=== PATIENT | male | born 1950 | race Caucasian/White ===

== ENCOUNTER → 2020-01-23 | Outpatient (CLI) | payer OTHER ==
[~2020-01-23] MED LIST: ACETAMINOPHEN650 M5 PO; ALLOPURINOL 10100 M3 PO; ASA81BEC PO; ASPIRIN325 PO; BUPROPION XL150 MG; CARVEDILOL12.5 MG PO; CLONAZEPAM; CLONAZEPAM PO; DESYREL50 MG; DIABETA 1.25M1.25 M1; FLOMAX0.4 MG PO; GLIMEPIRIDE4 MG PO; GLUCOPHAGE500 MG; IBUPROFEN 800800 M1 PO; IMIPRAMINE HCL50 M2; IMIPRAMINE HCL50 M2 PO; LANOXIN125 MCG PO; LIPITOR10 MG; LIPITOR10 MG PO; LORCET 5-325 M1 EACH PO; LUNESTA3 MG; METFORMIN; MIRTAZAPINE15 M2 PO; MUPIROCIN INTRADERM; NEURONTIN100 MG PO; NORCO 5-325 TA1 EACH PO; OMEPRAZOLE 20 M20 M1 PO; OMEPRAZOLE20 M2; PENLAC INTRADERM; PROSCAR 5MG TABL5 M1 PO; PYRIDOSTIGMINE60 M1 PO; TAMSULOSIN HCL0.4 M1; TESTONE CI200 MG/1 M IM; TOFRANIL; TRAZODONE HCL50 MG PO; TRESIBA100 UNIT/1; VITAMIN D250 MC1 PO; WELLBUTRIN SR150 MG PO
--- NOTE | ~2020-01-23 | PAINCON ---
[address] [address] PAIN MANAGEMENT CONSULTATION Name: JOSTIN BHAGAT Room: [facility].#: [id number] Admission: 01/23/20 Attend Phys: Genaro Rodriguez MD Discharge: Date of : 52 Report #: [id number] THIS REPORT FOR: //name// cc: Vasquez Saunders MD, Anthony MD ~ THIS REPORT FOR: //name// CC: Vasquez Rodriguez DATE OF SERVICE: 01/23/2020 CHIEF COMPLAINT: Left groin, low back and middle back pain. HISTORY: The patient is a 69-year-old gentleman who has been referred to the pain clinic. He has been experiencing pain, which has been more problematic over the last 4 months. He notes that pain is increased when he is standing. Activities of daily living can increase his discomfort. Has pain that radiates down the back area and around into the anterior portion of his thigh. Sometimes he notes pain in the left groin area. He rates it as a 1-2 on occasion. Oftentimes his pain continues to be more problematic as he becomes more active. He feels that this pain and discomfort is disturbing his sleep. He has been using gabapentin and hydrocodone that has provided about 80% improvement in his pain. He has not had back surgery. Denies any new bowel or bladder dysfunction. He has been told that he had some spinal stenosis. He has used prednisone in the past. he was given a Medrol Dosepak. He does like to ride his [employer]. ALLERGIES: PENICILLIN. CURRENT MEDICATIONS: Gabapentin 100 mg 1-2 tablets at bedtime, imipramine 50 mg, mupirocin 2% external ointment to affected area b.i.d., Penlac 8% external solution to nails daily, allopurinol 100 mg, insulin pen injector 50 units daily, tamsulosin 0.4 mg 1-2 tablets daily, hydrocodone 5/325 one p.o. q. 6 hours p.r.n. pain, pyridostigmine 60 mg q.i.d. p.r.n., aspirin 81 mg, digoxin, Coreg 12.5 mg b.i.d., finasteride 5 mg, glimepiride 4 mg b.i.d., mirtazapine 5 mg one-half to one tablet at bedtime, Wellbutrin 150 mg, testosterone intramuscular vitamin D 50,000 units weekly, omeprazole 20 mg, trazodone 50 mg 3 tablets at bedtime. 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 PAST SURGICAL HISTORY: Cholecystectomy in 1990, skin cancer, pacemaker/defibrillator placement in 2015. SOCIAL HISTORY: The patient retired in 2001. REVIEW OF SYSTEMS: Questionnaire, generally good health, wears glasses, heart trouble, shortness of breath with walking, swelling of the feet, shortness of breath with activity, weakness of muscles and joints. LABORATORY DATA: Exam of lumbar spine, 3 views 11/27/2019, multilevel facet joint degenerative changes particularly at L4 through S1. No evidence of acute fracture or bone destruction. Probable small right lower pole renal calculi again noted. Surgical clips from prior cholecystectomy. IMPRESSION: 1. Multilevel facet arthropathy. 2. Degenerative disk disease at L5 through S1. CT of the lumbar spine dated 12/04/2019. Finding the lowest fully formed disk is referred to as L5-S1. Limited evaluation of the intervertebral disk, spinal canal contents and soft tissues on this noncontrast CT image alignment height, maintain a slight anterolisthesis of L4 and L5 disk spaces. Disk space is narrowing at L5-S1 with vacuum disk phenomenon, endplate sclerosis and marginal osteophytes. Degenerative changes at other disk levels to a lesser degree. Broad-based disk bulge at L2-L3, L3-L4, and L4-L5. Probable left paracentral disk protrusion at L4-L5 as well. Central to right paracentral disk protrusion at L5-S1 without or with marginal osteophytes. Neural foramen, mild bilateral neural foraminal narrowing, left greater than right narrowing at L3-L4 due to asymmetric disk bulge or lateral disk protrusion. 3. Multilevel lumbar disk images with bulges. Left paracentral disk protrusion at L4-L5. Disk osteophyte complex at L5-S1. Facet arthropathy, most prominent at L4-L5. Consider a CT myelogram for further evaluation. 4. Degenerative joint disease of lumbar spine. 5. History of lumbar radiculopathy left. 6. Type 2 diabetes with diabetic polyneuropathy. 7. Benign prostatic hypertrophy with obstruction. 8. Hypogonadism. 9. Hypotension. 10. B12 deficiency. 11. Permanent pacemaker in place. 12. Congestive heart failure. 13. Proteinuria. 14. Kidney disease chronic stage 3. 15. Type 2 diabetes [place] [address] PAIN MANAGEMENT CONSULTATION Name: JOSTIN BHAGAT Room: [facility].#: [id number] Admission: 01/23/20 Attend Phys: Genaro Rodriguez MD Discharge: Date of : 52 Report #: [id number] 16. Cardiomyopathy dilated, ejection fraction 20% in 2015. 17. Thyroid nodule. 18. Myasthenia gravis. 19. Actinic keratosis. 20. Hypertension. 21. Hypercholesterolemia. 22. Insomnia. 23. Chronic overactive bladder. PAIN CLINIC ASSESSMENT AND PQRS: 1. The patient has some osteoarthritic changes in his back. The patient is not being treated for rheumatoid arthritis. 2. Height 6 feet 1 inch, weight 217 pounds, BMI 28.9. 3. Vital Signs: Blood pressure 95/57, heart rate 82, respiratory rate 16, room air saturation 96%, temperature 97.5. 4. Pain intensity is 1-2/10. 5. Fall history: The patient has not fallen in the last 3 months. 6. Blood thinner. The patient is not on a blood thinning medication. 7. Opioid use, greater than 6 weeks. The patient receives medications from his primary physician. 8. Opioid use low. 9. Risk assessment tool, low for opioids. 10. Functional assessment tool reviewed. 11. Recreational drug use. The patient denies. 13. Tobacco: The patient does not smoke. 13. Alcohol. The patient denies tobacco and again the patient denies significant use of alcohol. PHYSICAL EXAMINATION: GENERAL: The patient appears a well-developed, well-nourished white male. Appears his stated age. He is alert and oriented x 3. His affect is appropriate. Speech is fluent. HEENT: Normocephalic, atraumatic. Extraocular eye muscles intact. Sclerae nonicteric. Mucous membranes are moist. NECK: Without adenopathy or JVD. HEART: The patient's rate is normal rhythm. ABDOMEN: Nontender. MUSCULOSKELETAL: Upper extremity muscle strength judged to be 5-/5 for the major muscle groups in the upper extremity. The patient has pain and discomfort in the lower portion of his back. His pain is radiating down in the left L5-S1 dermatomal distribution in the back as well as some pain and discomfort in the L2-L3 area in the anterior portion of his thigh. RECOMMENDATIONS: We discussed treatment options with the patient. Risks and benefits of an epidural steroid injection have been discussed. Possibility of improvement from the epidural steroid injections were [place] [address] PAIN MANAGEMENT CONSULTATION Name: JOSTIN BHAGAT Room: [facility]#: [id number] Admission: 01/23/20 Attend Phys: Genaro Rodriguez MD Discharge: Date of : 52 Report #: [id number] has also been informed of the possible complications. Given that this is a time were COVID-19 is problematic. We have explained to the patient that the steroid medications can decrease the patient's ability to fight off COVID-19 get and have an infection. A script for his medications of hydrocodone 5/325 one p.o. 3 times a day have been provided. The patient will return to the Pain Clinic. The possibility of an epidural steroid injection is an option. We would like to thank you for letting us participate in his care. We hope he continues to improve. We would recommend that the patient continue to be mindful of the COVID-19, which is increasing in our area. By: [id number]. Armando Rodriguez MD /RUPERT
== END ==
LOC: M.PC 12:31
DX: M12.88 Other specific arthropathies, not elsewhere classified, other specified site (principal); M51.17 Intervertebral disc disorders with radiculopathy, lumbosacral region; E11.42 Type 2 diabetes mellitus with diabetic polyneuropathy; N40.0 Benign prostatic hyperplasia without lower urinary tract symptoms; E29.1 Testicular hypofunction; E53.8 Deficiency of other specified B group vitamins; Z95.0 Presence of cardiac pacemaker; I50.9 Heart failure, unspecified; N18.3 Chronic kidney disease, stage 3 (moderate); E11.22 Type 2 diabetes mellitus with diabetic chronic kidney disease; E04.1 Nontoxic single thyroid nodule; I13.0 Hypertensive heart and chronic kidney disease with heart failure and stage 1 through stage 4 chronic kidney disease, or unspecified chronic kidney disease; E78.00 Pure hypercholesterolemia, unspecified; Z79.891 Long term (current) use of opiate analgesic; Z79.899 Other long term (current) drug therapy

== ENCOUNTER → 2020-01-25 | Outpatient (CLI) | payer OTHER | END | disposition home or self-care (01) | LOC: M.PC 01:52 | DX: M54.16 Radiculopathy, lumbar region (principal); G89.29 Other chronic pain; Z79.899 Other long term (current) drug therapy; Z88.0 Allergy status to penicillin ==

== ENCOUNTER → 2020-04-18 | Outpatient (CLI) | payer OTHER ==
--- NOTE | 2020-04-18 22:53 | PAINCON ---
[address] [address] PAIN MANAGEMENT CONSULTATION Name: JOSTIN BHAGAT Room: [facility]#: [id number] Admission: 04/18/20 Attend Phys: Genaro Rodriguez MD Discharge: Date of : 52 Report #: [id number] THIS REPORT FOR: //name// cc: Vasquez Saunders MD, Anthony MD ~ THIS REPORT FOR: //name// CC: Vasquez Rodriguez DATE OF SERVICE: 04/18/2020 CHIEF COMPLAINT: Low back and hip pain. HISTORY: The patient is a 69-year-old gentleman who has been followed in the pain clinic because of chronic pain. He has noticed that this pain has increased over the last 4 months. Pain is worse when he is standing. He does have increased pain and discomfort with standing. When he goes shopping, he rides in one of the motorized cart. After standing for a few minutes, he notices increased pain in his low back. This pain can radiate down into the lateral portion of his left leg. He notes that the pain improves after sitting down for about 5 minutes. Walking increases the pain and discomfort and limits his ability to engage in walking activities. He feels that the last injection was helpful. He rates his pain as a 1 today. While sitting in certain positions and standing the pain can escalate to a higher level that causes him to switch positions. He is also having pain in his left hip. He states that the pain is in his left hip pocket. Certain movements worsen the pain. While sitting in the exam room he does complain of some pain and discomfort in the left hip and repositions his hip and the pain improves. He has not had surgery on his hip. He has not had back surgery. He has been told that he has spinal stenosis. Pain is worse, the pain prevents him from riding his [employer] motorcycle. ALLERGIES: PENICILLIN. CURRENT MEDICATIONS: Gabapentin 100 mg 1-2 tablets at bedtime, imipramine 50 mg, mupirocin 2% ointment b.i.d., Penlac 8% external solution for nails, allopurinol 100 mg, insulin injector 50 units, Flomax 0.4 mg 1-2 tablets, hydrocodone 5/325 one p.o. q. 6 hours p.r.n. pain, pyridostigmine 60 mg q.i.d., aspirin 81 mg, Digoxin, Coreg 12.5 mg b.i.d., finasteride 5 mg, glimepiride 5 mg b.i.d., mirtazapine 5 mg 1-1/2 tablets at bedtime, Wellbutrin 150 mg, testosterone, vitamin D 50,000 units weekly, omeprazole 20 mg, trazodone 50 mg 3 tablets at bedtime. PAIN CLINIC ASSESSMENT AND PQRS: 1. The patient does have some osteoarthritic changes in his back. [place] [address] PAIN MANAGEMENT CONSULTATION Name: JOSTIN BHAGAT Room: [facility] Maryam#: [id number] Admission: 04/18/20 Attend Phys: Genaro Rodriguez MD Discharge: Date of : 52 Report #: [id number] being treated for rheumatoid arthritis. 2. Height 6 feet 1 inch, weight 221 pounds, BMI is 29. 3. Vital Signs: Blood pressure 130/62, heart rate 75, respiratory rate 16, room air saturation 96%, temperature 97.7. 4. Pain intensity 1 while sitting today. 5. Fall history: The patient has not fallen in the last 3 months. 6. Blood thinner. The patient is not on a blood thinning medication. 7. Hypertension. The patient is being treated for hypertension. 8. Opioids, low for opioid use. 9. Risk assessment tool, low for opioids. 10. Recreational drug use. The patient denies. 11. Functional assessment reviewed. 12. Tobacco: The patient denies. 13. Alcohol. The patient denies significant alcohol use. PHYSICAL EXAMINATION: GENERAL: The patient is a well-developed, well-nourished white male. Appears his stated age. He is alert and oriented x 3. His affect is appropriate. Speech is fluent. HEENT: Normocephalic, atraumatic. Extraocular eye muscles intact. Sclerae nonicteric. Mucous membranes are moist. The patient is wearing glasses. He has a mask in place. NECK: Without adenopathy. HEART: Regular. ABDOMEN: Nontender. LUNGS: Generally clear. MUSCULOSKELETAL: Upper extremity muscle strength 5/5 for the major muscle groups in the upper extremity. The patient has pain and discomfort in the left hip. While sitting, he notes some pain and discomfort in the hip area with pain radiating into the groin area. Movement of his leg decreases some of this pain and discomfort. The patient also has pain that radiates down into the L4-L5 dermatomal distribution involving his leg. IMPRESSION: 1. Lumbar radiculopathy involving the L4-L5 dermatomal distribution. 2. History of spinal stenosis. 3. Left paracentral disk bulge protrusion at L4-L5. 4. Type 2 diabetes with diabetic polyneuropathy. 5. Benign prostatic hypertrophy with obstruction. 6. Hypogonadism. 7. Hypertension. 8. B12 deficiency. 9. Permanent pacemaker in place. 10. Congestive heart failure. 11. Proteinuria. 12. Kidney disease, chronic stage 3. [address] [place] [address] PAIN MANAGEMENT CONSULTATION Name: JOSTIN BHAGAT Room: [facility]#: [id number] Admission: 04/18/20 Attend Phys: Genaro Rodriguez MD Discharge: Date of : 52 Report #: [id number] 13. Type 2 diabetes with diabetic neuropathy. 14. Cardiomyopathy dilated, ejection fraction 20% in 2016. 15. Thyroid nodule. 16. Myasthenia gravis. 17. Actinic keratosis. 18. Hypertension. 19. Hypercholesterolemia. 20. Insomnia. 21. Chronic overactive bladder. RECOMMENDATIONS: We discussed treatment options with the patient. At this juncture, we will have his left hip evaluated with an x-ray. He does complain of pain and discomfort in the groin area. The pain that he has is sometime seen with hip pathology. We will have the patient return to the pain clinic, at which time we will consider an epidural steroid injection to help with the pain in the L4-L5 dermatomal distribution. We will also have the patient call us if he is having any problems. A script for hydrocodone 5 mg 1 p.o. t.i.d. have been provided. We would like to thank you for letting us participate in his care. We hope he continues to improve. <ELECTRONICALLY SIGNED> By: Genaro Rodriguez MD 04/18/20 [id number]. Armando Rodriguez MD /RUPERT
== END ==
LOC: M.RAD 03:57 → M.PC 03:57
PROVIDERS: ATTEND Anesthesiology Pain Medicine
DX: M54.16 Radiculopathy, lumbar region (principal); M51.26 Other intervertebral disc displacement, lumbar region; N40.0 Benign prostatic hyperplasia without lower urinary tract symptoms; I10 Essential (primary) hypertension; E29.1 Testicular hypofunction; E11.42 Type 2 diabetes mellitus with diabetic polyneuropathy; D51.9 Vitamin B12 deficiency anemia, unspecified; I50.20 Unspecified systolic (congestive) heart failure; R80.9 Proteinuria, unspecified; N18.3 Chronic kidney disease, stage 3 (moderate); Z86.69 Personal history of other diseases of the nervous system and sense organs; Z95.0 Presence of cardiac pacemaker; Z88.0 Allergy status to penicillin; Z79.899 Other long term (current) drug therapy

== ENCOUNTER → 2020-05-02 | Outpatient (CLI) | payer OTHER ==
--- NOTE | 2020-05-21 21:31 | PAINCON ---
[facility] [address] [place] [address] PAIN MANAGEMENT CONSULTATION Name: JOSTIN BHAGAT Room: [facility]#: [id number] Admission: 05/02/20 Attend Phys: Genaro Rodriguez MD Discharge: Date of : 52 Report #: [id number] THIS REPORT FOR: //name// cc: Vasquez Saunders MD, Anthony MD ~ THIS REPORT FOR: //name// CC: Vasquez Rodriguez DATE OF SERVICE: 05/02/2020 CHIEF COMPLAINT: Low back pain. HISTORY: The patient is a 69-year-old gentleman who has been seen in the pain clinic because of lumbar radiculopathy. He has pain, which has been problematic over the last 4 months. Pain is worse when he is standing. Notes increased discomfort with activities of daily living. He often drives a motorized cart when he goes to the store. He notes that there is pain that radiates down into his lateral leg. Notes improvement after sitting for about 5 minutes. Walking increases the pain. Notes that the pain is about 1 when sitting. It escalates with activity. He has had symptoms of spinal stenosis. He has not had back surgery. ALLERGIES: PENICILLIN. CURRENT MEDICATIONS: Gabapentin 100 mg 1-2 tablets at bedtime, imipramine 50 mg, mupirocin 2% ointment b.i.d., Penlac 8% external solution for nails, allopurinol 100 mg, insulin injector 50 units, Flonase 0.4 mg 1-2 tablets, hydrocodone 5/325 one p.o. q. 4 hours p.r.n., Pyridostigmine 60 mg q.i.d., aspirin 81 mg, doxepin, Coreg 12.5 mg, finasteride 5 mg, glimepiride 5 mg b.i.d., mirtazapine 5 mg 1-1/2 tablets at bedtime, Wellbutrin 150 mg, testosterone, vitamin D 50,000 units weekly, omeprazole 20 mg, trazodone 50 mg at bedtime. PAIN CLINIC ASSESSMENT AND PQRS: 1. The patient is not being treated for rheumatoid arthritis. He does have some arthritic changes in his back. 2. Height 6 feet 1 inch, weight 219 pounds, BMI is 28. 3. Vital Signs: Blood pressure 93/55, heart rate 78, respiratory rate 16, room air saturation is 96%, temperature 97.5. 4. Pain intensity 3/10. 5. Fall history: The patient has not fallen since we saw him last. 6. Blood thinner. The patient is not on a blood thinning medication. 7. Hypertension. The patient is being treated for hypertension. 8. Opioids, [place] [address] PAIN MANAGEMENT CONSULTATION Name: COLLIN BHAGATAbbey Hernandez Room: [facility]#: [id number] Admission: 05/02/20 Attend Phys: Genaro Rodriguez MD Discharge: Date of : 52 Report #: [id number] 9. Functional assessment tool, low for use of opioid. 10. Recreational drug use. The patient denies. 11. Functional assessment tool, reviewed. 12. Tobacco: The patient denies use of tobacco. 13. Alcohol. The patient denies significant alcohol abuse. PHYSICAL EXAMINATION: GENERAL: The patient is a well-developed, well-nourished white male. Appears his stated age. He is alert and oriented x 3. His affect is appropriate. Speech is fluent. HEENT: Normocephalic, atraumatic. Extraocular eye muscles intact. Sclerae nonicteric. Mucous membranes are moist. The patient is wearing glasses. He has a mask in place. NECK: Without adenopathy. HEART: Regular rate. ABDOMEN: Nontender. LUNGS: Generally clear. MUSCULOSKELETAL: Upper extremity muscle strength judged to be 5-/5 for the major muscle groups in the upper extremity. The patient has some pain and discomfort in his left hip. Notes that there is pain and discomfort in the hip, which radiates into his groin. The patient has leg discomfort and discomfort radiating down into the L4-L5 dermatomal distribution. IMPRESSION: 1. Lumbar radiculopathy involving the L4-L5 dermatomal distribution. 2. History of spinal stenosis. 3. Left paracentral disk bulge protrusion at L4-L5. 4. Type 2 diabetes with diabetic polyneuropathy. 5. Benign prostatic hypertrophy with obstruction. 6. Hypogonadism 7. Hypertension. 8. B12 deficiency. 9. Permanent pacemaker in place. 10. Congestive heart failure. 11. Proteinuria. 12. Kidney disease, chronic stage 3. 13. Type 2 diabetes with diabetic neuropathy. 14. Dilated cardiomyopathy with an ejection fraction 20% in 2016. 15. Thyroid disease. 16. Myasthenia gravis. 17. Actinic keratoses. 18. Hypertension. 19. Hypercholesterolemia. 20. Insomnia. 21. Overactive bladder. [address] [address] PAIN MANAGEMENT CONSULTATION Name: [facility]OSTIN BHAGAT [id number] Admission: 05/02/20 Attend Phys: Genaro Rodriguez MD Discharge: Date of : 52 Report #: [id number] RECOMMENDATIONS: We discussed treatment options with the patient. Risks and benefits of an epidural steroid injection were discussed. Possible complications of the procedure, which could include but are not limited to infection, worsening pain, no improvement in pain, nerve damage were reviewed. The COVID-19 pandemic is present. We discussed with the patient the possibility of infection with COVID virus. Given that steroids can decrease one's immune response. The patient may have a more difficult time with the virus. The patient elects to proceed. PROCEDURE NOTE: The patient was taken to the procedure area. He was then assisted in getting on examination table. His back was sterilely prepped. A 0.25% bupivacaine was infiltrated at the L4-L5 interspace. A 17-gauge Tuohy with loss of resistance technique was used to gain access to the epidural space. There was no CSF, heme or paresthesia. Total of 80 mg Depo-Medrol, 40 mg triamcinolone and 2 mL of 0.25% bupivacaine was injected. The patient tolerated the procedure well. He remained in the pain clinic for an appropriate amount of time. We would like to thank you for letting us participate in his care. We hope he continues to improve. <ELECTRONICALLY SIGNED> By: Genaro Rodriguez MD 05/21/20 [id number]. Armando Rodriguez MD /PMT
== END | disposition home or self-care (01) ==
LOC: M.PC 01:48
PROVIDERS: ATTEND Anesthesiology Pain Medicine
DX: M54.16 Radiculopathy, lumbar region (principal); G89.29 Other chronic pain; I13.0 Hypertensive heart and chronic kidney disease with heart failure and stage 1 through stage 4 chronic kidney disease, or unspecified chronic kidney disease; E11.22 Type 2 diabetes mellitus with diabetic chronic kidney disease; N18.3 Chronic kidney disease, stage 3 (moderate); I50.9 Heart failure, unspecified; N40.0 Benign prostatic hyperplasia without lower urinary tract symptoms; E11.40 Type 2 diabetes mellitus with diabetic neuropathy, unspecified; E07.9 Disorder of thyroid, unspecified; E78.00 Pure hypercholesterolemia, unspecified; G47.00 Insomnia, unspecified; Z98.890 Other specified postprocedural states; Z79.899 Other long term (current) drug therapy; Z79.4 Long term (current) use of insulin; Z95.0 Presence of cardiac pacemaker; Z88.0 Allergy status to penicillin

== ENCOUNTER → 2020-06-20 | Outpatient (CLI) | payer OTHER ==
--- NOTE | 2020-07-02 14:22 | PAINCON ---
[address] [address] PAIN MANAGEMENT CONSULTATION Name: JOSTIN BHAGAT Room: [facility]#: [id number] Admission: 06/20/20 Attend Phys: Genaro Rodriguez MD Discharge: Date of : 52 Report #: [id number] THIS REPORT FOR: //name// cc: Vasquez Saunders MD, Anthony MD ~ THIS REPORT FOR: //name// CC: Vasquez Rodriguez DATE OF SERVICE: 06/20/2020 CHIEF COMPLAINT: Low back and leg pain. HISTORY: The patient is a 70-year-old gentleman who has been seen in the Pain Clinic in the past because of lumbar radiculopathy. He has been experiencing pain and discomfort, which is radiating down the lower portion of his back and into the lateral portion of his leg. He has returned today with the desire to undergo an epidural steroid injection. He rates his pain as 7/10 today. Pain radiates down into the low back and involving the left leg and left groin area as well. He is limited in his ability to walk for distance. After about 5 minutes, he must sit and rest. He has been experiencing clinical symptoms of spinal stenosis. He has not had back surgery. ALLERGIES: PENICILLIN. CURRENT MEDICATIONS: Gabapentin 100 mg 1-2 tablets at bedtime, imipramine 50 mg, mupirocin 2% ophthalmic b.i.d., Penlac 8% external solution for nails, allopurinol 100 mg, insulin injector 50 units as directed, Flonase 0.4 mg 1-2 tablets, hydrocodone 5/325 one p.o. every 4-6 hours p.r.n., pyridostigmine 60 mg q.i.d., aspirin 81 mg, Coreg 12.5 mg, finasteride 5 mg, glimepiride 5 mg b.i.d., mirtazapine 5 mg 1-1/2 tablets at bedtime, Wellbutrin 150 mg, testosterone, vitamin D 50,000 units weekly, omeprazole 20 mg, and trazodone 50 mg at bedtime. PAIN CLINIC ASSESSMENT AND PQRS: 1. The patient is not being treated for rheumatoid arthritis. He does have some arthritic changes in his back. 2. Height 6 feet 1 inch, weight 223 pounds, BMI is 29. 3. Vital signs: Blood pressure is 154/55. 4. ____, respiratory rate 16, and room air saturation 94%. 5. Pain intensity 7/10. 6. Fall history: The patient has not fallen in the last 3 months. 7. Blood thinner. The patient is not on a blood thinning medication. 8. Hypertension. The patient is being treated for hypertension. 9. Opioids, [place] [address] PAIN MANAGEMENT CONSULTATION Name: JOSTIN BHAGAT David Room: [facility]#: [id number] Admission: 06/20/20 Attend Phys: Genaro Rodriguez MD Discharge: Date of : 52 Report #: [id number] 10. Functional assessment tool reviewed. 11. Recreational drug use. The patient denies. 12. Tobacco: The patient denies use of tobacco. 13. Alcohol. The patient denies significant use of alcohol. PHYSICAL EXAMINATION: GENERAL: The patient is a well-developed, well-nourished white male. Appears his stated age. He is alert and oriented x 3. He is accompanied by his . He has a facial covering in place. Mucous membranes moist. The patient is wearing glasses. NECK: Without adenopathy. HEART: Regular rate. ABDOMEN: Nontender. LUNGS: Generally clear. MUSCULOSKELETAL: Upper extremity muscle strength judged to be 5-/5 for the major muscle groups in the upper extremity. The patient has pain and discomfort in his left hip. Also, notes pain that radiates down into the groin area on the left side. The patient has pain in the L4-L5 dermatomal distribution. IMPRESSION: 1. Lumbar radiculopathy in the L4-L5 dermatomal distribution on the left. 2. History of spinal stenosis. 3. Left paracentral disk bulge protrusion at L4-L5. 4. Type 2 diabetes with diabetic polyneuropathy. 5. Benign prostatic hypertrophy with obstruction. 6. Hypogonadism. 7. Hypertension. 8. B12 deficiency. 9. Permanent pacemaker in place. 10. Congestive heart failure. 11. Proteinuria. 12. Kidney disease, chronic stage 3. 13. Type 2 diabetes with diabetic neuropathy. 14. Dilated cardiomyopathy with an ejection fraction 20% in 2016. 15. Thyroid disease. 16. Myasthenia gravis. 17. Actinic keratoses. 18. Hypercholesterolemia. 19. Insomnia. 20. Overactive bladder. RECOMMENDATIONS: We discussed treatment options with the patient. Risks and benefits of an epidural steroid injection were discussed. They include but are not limited to infection, worsening pain, no improvement in pain, bleeding, headache and the patient elects to proceed. We discussed the problems with steroid medications. They can elevate one's blood sugar. [place] [address] PAIN MANAGEMENT CONSULTATION Name: JOSTIN BHAGAT Room: [facility]#: [id number] Admission: 06/20/20 Attend Phys: Genaro Rodriguez MD Discharge: Date of : 52 Report #: [id number] chronic kidney disease. We have explained that steroids can decrease the immune response. Since COVID-19 is pandemic, the patient if he were to become infected might have a more difficult time with the infection. The patient elects to proceed. PROCEDURE NOTE: The patient was taken to the procedure area. He was then assisted in getting on the examination table. His back was sterilely prepped with a Betadine solution at the L4-L5 areas. A 0.25% bupivacaine was infiltrated. A 17-gauge Tuohy with loss of resistance technique was used to gain access to the epidural space. There was no CSF, heme or paresthesia. Total of 80 mg Depo-Medrol, 40 mg triamcinolone and 2 mL of 0.25% bupivacaine was injected. The patient tolerated the procedure well. The patient remained in the Pain Clinic for an appropriate amount of time. He will follow up in the future as needed. We would like to thank you for letting us participate in his care. We hope he continues to improve. Total of 14 seconds fluoroscopy time was used. <ELECTRONICALLY SIGNED> By: Genaro Rodriguez MD 07/02/20 1422 [id number]. Armando Rodriguez MD /nt
== END | disposition home or self-care (01) ==
LOC: M.PC 11:30
PROVIDERS: ATTEND Anesthesiology Pain Medicine
DX: M54.16 Radiculopathy, lumbar region (principal); M51.36 Other intervertebral disc degeneration, lumbar region; E11.40 Type 2 diabetes mellitus with diabetic neuropathy, unspecified; I13.0 Hypertensive heart and chronic kidney disease with heart failure and stage 1 through stage 4 chronic kidney disease, or unspecified chronic kidney disease; E11.22 Type 2 diabetes mellitus with diabetic chronic kidney disease; I50.9 Heart failure, unspecified; N40.1 Benign prostatic hyperplasia with lower urinary tract symptoms; G47.00 Insomnia, unspecified; E78.00 Pure hypercholesterolemia, unspecified; E07.9 Disorder of thyroid, unspecified; Z98.890 Other specified postprocedural states; Z79.899 Other long term (current) drug therapy; Z88.0 Allergy status to penicillin

== ENCOUNTER → 2020-07-18 | Outpatient (CLI) | payer OTHER ==
[~2020-07-18] MED LIST changes: +HYDROCODON-ACE1 EAC7 PO
--- NOTE | ~2020-07-18 | PAINCON ---
[facility] [address] [place] [address] PAIN MANAGEMENT CONSULTATION Name: JOSTIN BHAGAT David Room: [facility]#: [id number] Admission: 07/18/20 Attend Phys: Genaro Rodriguez MD Discharge: Date of : 52 Report #: [id number] THIS REPORT FOR: //name// cc: Vasquez Saunders MD, Anthony MD ~ CC: Vasquez Rodriguez DATE OF SERVICE: 07/18/2020 CHIEF COMPLAINT: Low back and left leg pain. HISTORY: The patient is a 70-year-old gentleman who has been seen in the Pain Clinic because of lumbar radiculopathy. He has pain that radiates down into the lateral portion of his left leg and lower back. He has undergone epidural steroid injections. These have proven beneficial. He continues to have some pain in the low back and left leg. It radiates down to his calf. Feels that he got about 30% relief after the last injection. There were no complications. He has returned today with the hopes of having his medications renewed. Notes that pain increases with walking, sitting, standing, climbing stairs. He feels his medications of hydrocodone continued to be beneficial. ALLERGIES: PENICILLIN. CURRENT MEDICATIONS: Gabapentin 100 mg 1-2 tablets at bedtime, imipramine 50 mg, mupirocin 2% ophthalmic b.i.d., Penlac 8% external solution for nails, allopurinol 100 mg, insulin injector 50 units use as directed, Flonase 0.4 mg 1-2 tablets, hydrocodone 5/325 one p.o. every 4-6 hours p.r.n., pyridostigmine 60 mg q.i.d., aspirin 81 mg, Coreg 12.5 mg, finasteride 5 mg, gemfibrozil, glimepiride 5 mg b.i.d., mirtazapine 5 mg 1-1/2 tablets at bedtime, Wellbutrin 150 mg, testosterone, vitamin D 50,000 units weekly, omeprazole 20 mg, trazodone 50 mg at bedtime. PAIN CLINIC ASSESSMENT/PQRS: 1. The patient is not being treated for rheumatoid arthritis. He does have some arthritic changes in his back. 2. Height 6 feet 1 inch, weight 225 pounds, BMI is 29. 3. Vital signs: Blood pressure 140/64, heart rate 89, respiratory rate 16, room air saturation 94%, temperature is 96.8. 4. Pain intensity, 4/10. 5. Fall history: The patient has not fallen since we saw him last. 6. Blood thinner. The patient is not on a blood thinning medication. 7. Hypertension. The patient is being treated for hypertension. 8. Opioids. The patient receives medication from the Pain Clinic. 9. Risk assessment tool, [place] [address] PAIN MANAGEMENT CONSULTATION Name: JOSTIN BHAGAT Room: [facility]#: [id number] Admission: 07/18/20 Attend Phys: Genaro Rodriguez MD Discharge: Date of : 52 Report #: [id number] 10. Recreational drug use: The patient denies. 11. Tobacco: The patient denies. 12. Alcohol. The patient denies significant use of alcoholic beverages. PHYSICAL EXAMINATION: GENERAL: The patient is a well-developed, well-nourished white male. Appears his stated age. He is alert and oriented x 3. His affect is appropriate. Speech is fluent. HEENT: Normocephalic. The patient is wearing a facial covering. He is accompanied by his . He is wearing glasses. NECK: Without adenopathy. HEART: Regular rate. ABDOMEN: Nontender. LUNGS: Generally clear. MUSCULOSKELETAL: Upper extremity muscle strength is judged to be 5-/5 for the major muscle groups in the upper extremity. The patient has pain and discomfort in his left hip and down to his left leg involving the calf. This is involving the L4-L5 dermatomal distribution. IMPRESSION: 1. Lumbar radiculopathy, L4-L5 dermatomal distribution on the left. 2. History of spinal stenosis. 3. Left paracentral disk bulge protrusion at L4-L5. 4. Type 2 diabetes with diabetic polyneuropathy. 5. Benign prostatic hypertrophy with obstruction. 6. Hypogonadism. 7. Hypertension. 8. Vitamin B12 deficiency. 9. Permanent pacemaker in place. 10. Congestive heart failure. 11. Proteinuria. 12. Kidney disease stage 3, chronic. 13. Type 2 diabetes with diabetic neuropathy. 14. Dilated cardiomyopathy with an ejection fraction 20% in 2016. 15. Thyroid disease. 16. Myasthenia gravis. 17. Actinic keratosis. 18. Hypercholesterolemia. 19. Insomnia. 20. Overactive bladder. RECOMMENDATIONS: We discussed treatment options with the patient. At this juncture, we will continue with his current medications. A script for hydrocodone has been rewritten. The patient will return in the future, at which time, consideration of another epidural steroid injection to help quell and decrease his pain has been discussed. He has not had any complications with the [address] [place] [address] PAIN MANAGEMENT CONSULTATION Name: JOSTIN BHAGAT Room: [facility]#: [id number] Admission: 07/18/20 Attend Phys: Genaro Rodriguez MD Discharge: Date of : 52 Report #: [id number] medications. He is aware that opioid medications can become less effective as time goes on because of development of tolerance. He is able to think clearly. These medications were not dulling his sensorium. By: [id number]. Armando Rodriguez MD /nt
== END ==
LOC: M.PC 10:30
PROVIDERS: ATTEND Anesthesiology Pain Medicine
DX: M51.16 Intervertebral disc disorders with radiculopathy, lumbar region (principal); E11.42 Type 2 diabetes mellitus with diabetic polyneuropathy; N40.0 Benign prostatic hyperplasia without lower urinary tract symptoms; E53.8 Deficiency of other specified B group vitamins; E11.22 Type 2 diabetes mellitus with diabetic chronic kidney disease; I13.0 Hypertensive heart and chronic kidney disease with heart failure and stage 1 through stage 4 chronic kidney disease, or unspecified chronic kidney disease; I50.9 Heart failure, unspecified; Z95.0 Presence of cardiac pacemaker; N18.30 Chronic kidney disease, stage 3 unspecified; R80.9 Proteinuria, unspecified; I42.0 Dilated cardiomyopathy; G70.00 Myasthenia gravis without (acute) exacerbation; L57.0 Actinic keratosis; E78.00 Pure hypercholesterolemia, unspecified; G47.00 Insomnia, unspecified; N32.81 Overactive bladder; Z88.0 Allergy status to penicillin; Z68.29 Body mass index [BMI] 29.0-29.9, adult; Z79.891 Long term (current) use of opiate analgesic; Z79.899 Other long term (current) drug therapy

== ENCOUNTER → 2020-08-20 | Outpatient (CLI) | payer OTHER | LOC: M.PC 10:40 | PROVIDERS: ATTEND Anesthesiology Pain Medicine | DX: M51.16 Intervertebral disc disorders with radiculopathy, lumbar region (principal); K21.9 Gastro-esophageal reflux disease without esophagitis; E11.42 Type 2 diabetes mellitus with diabetic polyneuropathy; N40.0 Benign prostatic hyperplasia without lower urinary tract symptoms; Z95.0 Presence of cardiac pacemaker; E11.22 Type 2 diabetes mellitus with diabetic chronic kidney disease; I13.0 Hypertensive heart and chronic kidney disease with heart failure and stage 1 through stage 4 chronic kidney disease, or unspecified chronic kidney disease; I50.9 Heart failure, unspecified; N18.30 Chronic kidney disease, stage 3 unspecified; I42.0 Dilated cardiomyopathy; G70.00 Myasthenia gravis without (acute) exacerbation; L57.0 Actinic keratosis; E78.00 Pure hypercholesterolemia, unspecified; G47.00 Insomnia, unspecified; N32.81 Overactive bladder; Z88.0 Allergy status to penicillin; Z68.29 Body mass index [BMI] 29.0-29.9, adult ==

== ENCOUNTER → 2020-10-15 | Outpatient (CLI) | payer OTHER | LOC: M.PC 10:28 | PROVIDERS: ATTEND Anesthesiology Pain Medicine | DX: M51.16 Intervertebral disc disorders with radiculopathy, lumbar region (principal); E11.22 Type 2 diabetes mellitus with diabetic chronic kidney disease; I13.0 Hypertensive heart and chronic kidney disease with heart failure and stage 1 through stage 4 chronic kidney disease, or unspecified chronic kidney disease; I50.9 Heart failure, unspecified; N18.30 Chronic kidney disease, stage 3 unspecified; N32.81 Overactive bladder; G47.00 Insomnia, unspecified; L57.0 Actinic keratosis; E05.00 Thyrotoxicosis with diffuse goiter without thyrotoxic crisis or storm; E07.9 Disorder of thyroid, unspecified; I42.9 Cardiomyopathy, unspecified; R80.9 Proteinuria, unspecified; D51.9 Vitamin B12 deficiency anemia, unspecified; E29.1 Testicular hypofunction; N40.1 Benign prostatic hyperplasia with lower urinary tract symptoms; E11.42 Type 2 diabetes mellitus with diabetic polyneuropathy; F10.10 Alcohol abuse, uncomplicated; Z87.39 Personal history of other diseases of the musculoskeletal system and connective tissue; Z87.891 Personal history of nicotine dependence; Z79.899 Other long term (current) drug therapy ==

== ENCOUNTER → 2020-11-12 | Outpatient (CLI) | payer OTHER | LOC: M.PC 10:30 | PROVIDERS: ATTEND Anesthesiology Pain Medicine | DX: M51.16 Intervertebral disc disorders with radiculopathy, lumbar region (principal); E11.42 Type 2 diabetes mellitus with diabetic polyneuropathy; E11.22 Type 2 diabetes mellitus with diabetic chronic kidney disease; I13.0 Hypertensive heart and chronic kidney disease with heart failure and stage 1 through stage 4 chronic kidney disease, or unspecified chronic kidney disease; N18.30 Chronic kidney disease, stage 3 unspecified; I50.9 Heart failure, unspecified; E11.21 Type 2 diabetes mellitus with diabetic nephropathy; N40.0 Benign prostatic hyperplasia without lower urinary tract symptoms; E78.00 Pure hypercholesterolemia, unspecified; G70.00 Myasthenia gravis without (acute) exacerbation; L57.0 Actinic keratosis; G47.00 Insomnia, unspecified; N32.81 Overactive bladder; R80.9 Proteinuria, unspecified; Z95.0 Presence of cardiac pacemaker ==

== ENCOUNTER → 2020-12-10 | Outpatient (CLI) | payer OTHER | LOC: M.PC 10:39 | PROVIDERS: ATTEND Anesthesiology Pain Medicine | DX: M51.16 Intervertebral disc disorders with radiculopathy, lumbar region (principal); R10.32 Left lower quadrant pain; M54.9 Dorsalgia, unspecified; K21.9 Gastro-esophageal reflux disease without esophagitis; Z68.30 Body mass index [BMI] 30.0-30.9, adult; E11.42 Type 2 diabetes mellitus with diabetic polyneuropathy; N40.1 Benign prostatic hyperplasia with lower urinary tract symptoms; E53.8 Deficiency of other specified B group vitamins; Z95.0 Presence of cardiac pacemaker; E11.22 Type 2 diabetes mellitus with diabetic chronic kidney disease; I13.0 Hypertensive heart and chronic kidney disease with heart failure and stage 1 through stage 4 chronic kidney disease, or unspecified chronic kidney disease; I50.9 Heart failure, unspecified; N18.30 Chronic kidney disease, stage 3 unspecified; R80.9 Proteinuria, unspecified; I42.0 Dilated cardiomyopathy; E07.9 Disorder of thyroid, unspecified; G70.00 Myasthenia gravis without (acute) exacerbation; L57.0 Actinic keratosis; G47.00 Insomnia, unspecified; N32.81 Overactive bladder; E78.00 Pure hypercholesterolemia, unspecified; Z79.891 Long term (current) use of opiate analgesic; Z79.899 Other long term (current) drug therapy; Z88.0 Allergy status to penicillin ==

== ENCOUNTER → 2021-01-07 | Outpatient (CLI) | payer OTHER ==
[~2021-01-07] MED LIST changes: -CARVEDILOL12.5 MG PO; +CARVEDILOL25 MG PO
== END ==
LOC: M.PC 10:27
PROVIDERS: ATTEND Anesthesiology Pain Medicine
DX: M51.26 Other intervertebral disc displacement, lumbar region (principal); E11.42 Type 2 diabetes mellitus with diabetic polyneuropathy; E11.22 Type 2 diabetes mellitus with diabetic chronic kidney disease; I13.0 Hypertensive heart and chronic kidney disease with heart failure and stage 1 through stage 4 chronic kidney disease, or unspecified chronic kidney disease; N18.30 Chronic kidney disease, stage 3 unspecified; I50.9 Heart failure, unspecified; M79.606 Pain in leg, unspecified; K21.9 Gastro-esophageal reflux disease without esophagitis; F41.9 Anxiety disorder, unspecified; F32.9 Major depressive disorder, single episode, unspecified; E78.00 Pure hypercholesterolemia, unspecified; E11.9 Type 2 diabetes mellitus without complications; M48.00 Spinal stenosis, site unspecified; N40.0 Benign prostatic hyperplasia without lower urinary tract symptoms; R80.9 Proteinuria, unspecified; E53.8 Deficiency of other specified B group vitamins; E07.9 Disorder of thyroid, unspecified; G70.00 Myasthenia gravis without (acute) exacerbation; L57.0 Actinic keratosis; G47.00 Insomnia, unspecified; N32.81 Overactive bladder; M54.9 Dorsalgia, unspecified

== ENCOUNTER → 2021-07-15 | Outpatient (CLI) | payer OTHER | LOC: M.PC 10:31 | PROVIDERS: ATTEND Anesthesiology Pain Medicine | DX: M54.16 Radiculopathy, lumbar region (principal); M51.26 Other intervertebral disc displacement, lumbar region; E11.9 Type 2 diabetes mellitus without complications; N40.0 Benign prostatic hyperplasia without lower urinary tract symptoms; I10 Essential (primary) hypertension; E53.8 Deficiency of other specified B group vitamins; I50.9 Heart failure, unspecified; R80.9 Proteinuria, unspecified; N18.30 Chronic kidney disease, stage 3 unspecified; I42.0 Dilated cardiomyopathy; E07.9 Disorder of thyroid, unspecified; G70.00 Myasthenia gravis without (acute) exacerbation; H16.139 Photokeratitis, unspecified eye; E78.00 Pure hypercholesterolemia, unspecified; G47.00 Insomnia, unspecified; N31.2 Flaccid neuropathic bladder, not elsewhere classified ==

== ENCOUNTER → 2021-09-09 | Outpatient (CLI) | payer OTHER ==
[~2021-09-09] MED LIST changes: +HYDROCODONE-AP1 EA11 PO
== END ==
LOC: M.PC 11:35
PROVIDERS: ATTEND Anesthesiology Pain Medicine
DX: E11.22 Type 2 diabetes mellitus with diabetic chronic kidney disease (principal); I13.0 Hypertensive heart and chronic kidney disease with heart failure and stage 1 through stage 4 chronic kidney disease, or unspecified chronic kidney disease; N18.30 Chronic kidney disease, stage 3 unspecified; I50.9 Heart failure, unspecified; E11.42 Type 2 diabetes mellitus with diabetic polyneuropathy; M48.00 Spinal stenosis, site unspecified; M51.26 Other intervertebral disc displacement, lumbar region; N40.0 Benign prostatic hyperplasia without lower urinary tract symptoms; R80.9 Proteinuria, unspecified; G70.00 Myasthenia gravis without (acute) exacerbation; E53.8 Deficiency of other specified B group vitamins; E78.00 Pure hypercholesterolemia, unspecified; G47.30 Sleep apnea, unspecified; L57.0 Actinic keratosis; Z95.0 Presence of cardiac pacemaker; Z79.899 Other long term (current) drug therapy